=== PATIENT | female | born 1995 | race Caucasian/White ===

== ENCOUNTER 2018-01-30 11:03 | Emergency (ER) | payer SELFPAY ==
[~2018-01-30] VITALS: Ht 160 cm; Wt 65.0 kg
[2018-01-30 11:07] VITALS: BP 138/90; PULSE 90; RESP 22; TEMP 99.1
[2018-01-30 11:20] VITALS: BP 124/73; PULSE 66; RESP 16; O2SAT 100
[2018-01-30] MEDS ORDERED: birth control (11:25)
[2018-01-30 11:41] LABS: AUTOMATED NEUTROPHIL # 11.9 TH/MM3 (1.8-7.7); BASOPHIL # 0.1 TH/MM3 (0-0.2); BASOPHIL % 0.6 % (0.0-2.0); EOSINOPHIL % 0.1 % (0.0-4.0); HEMATOCRIT 41.8 % (35.0-46.0); HEMOGLOBIN 14.1 GM/DL (11.6-15.3); LYMPH % 8.8 % (9.0-44.0); LYMPHOCYTE # 1.2 TH/MM3 (1.0-4.8); MEAN CELL VOLUME 85.9 FL (80.0-100.0); MEAN CORPUSCULAR HGB CONC 33.8 % (32.0-36.0); MEAN PLATELET VOLUME 9.2 FL (7.0-11.0); MONO % 3.8 % (0.0-8.0); MONOCYTE # 0.5 TH/MM3 (0-0.9); NEUT % 86.7 % (16.0-70.0); PLATELET COUNT 226 TH/MM3 (150-450); RED BLOOD COUNT 4.87 MIL/MM3 (4.00-5.30); RED CELL DISTRIBUTION WIDTH 13.2 % (11.6-17.2); WHITE BLOOD COUNT 13.7 TH/MM3 (4.0-11.0)
[2018-01-30 12:04] LABS: ALBUMIN 4.4 GM/DL (3.4-5.0); AST (GOT) 17 U/L (15-37); BICARBONATE 21.5 MEQ/L (21.0-32.0); BLOOD UREA NITROGEN 7 MG/DL (7-18); CALCIUM 9.2 MG/DL (8.5-10.1); CHLORIDE 106 MEQ/L (98-107); CREATININE 0.74 MG/DL (0.50-1.00); GLOMERULAR FILTRATION RATE 97 ML/MIN (>89); GLUCOSE,RANDOM 93 MG/DL (74-106); SODIUM (NA) 139 MEQ/L (136-145)
[2018-01-30 12:05] LABS: ALT (GPT) 28 U/L (10-53)
[2018-01-30 12:07] LABS: ALKALINE PHOSPHATASE 42 U/L (45-117); TOTAL BILIRUBIN ADULT 0.8 MG/DL (0.2-1.0); TOTAL PROTEIN 7.6 GM/DL (6.4-8.2)
[2018-01-30] MEDS ORDERED: HALOPERIDOL LACTATE 5 MG/ML AMP IM ONE (12:15)
[2018-01-30] MEDS ORDERED: LORazepam 2 MG/ML VIAL IM ONE (12:15)
[2018-01-30] MEDS ORDERED: SODIUM CHLOR 0.9% 1000 ML INJ 1,000 ML IV ONE (12:15)
[2018-01-30 12:24] VITALS: BP 128/68; PULSE 71; RESP 16; TEMP 98; O2SAT 98
[2018-01-30 12:40] LABS: BACTERIA, URINE FEW /hpf; BILIRUBIN, URINE NEG (NEG); BLOOD, URINE SMALL (NEG); GLUCOSE,URINE NEG (NEG); KETONE, URINE 150 mg/dL (NEG); MUCUS URINE MOD /lpf (OCC); NITRITE,URINE NEG (NEG); PH, URINE 6.5 (5.0-8.5); SQUAMOUS EPITHELIAL CELL URINE 14 /hpf (0-5); URINE COLOR YELLOW (YELLW/STRAW); URINE LEUKOCYTE ESTERASE SMALL (NEG)
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
[2018-01-30] MEDS ORDERED: POTASSIUM CHLORIDE 20 MEQ CONTROLLED RELEASE TAB PO ONE (13:45)
[2018-01-30] MEDS ORDERED: IOHEXOL 350 MG/ML 10 ML VIAL (for RAD DIAG) IVCONTRAST ONE (14:11)
[2018-01-30 14:23] VITALS: BP 120/73; PULSE 68; RESP 16; O2SAT 98
--- NOTE | 2018-01-30 14:59 | RADRPT ---
EXAM DATE/TIME: 01/30/2018 14:01 [facility] COMPARISON: No previous studies available for comparison. INDICATIONS : Intractable nausea for two weeks. IV CONTRAST: 82 cc Omnipaque 350 (iohexol) IV ORAL CONTRAST: No oral contrast ingested. RADIATION DOSE: 5.77 CTDIvol (mGy) Dose Comments: MEDICAL HISTORY : None SURGICAL HISTORY : None. ENCOUNTER: Initial ACUITY: 2 weeks PAIN SCALE: 4/10 LOCATION: Bilateral upper quadrant epigastric. TECHNIQUE: Volumetric scanning of the abdomen and pelvis was performed. Using automated exposure control and ad justment of the mA and/or kV according to patient size, radiation dose was kept as low as reasonably achievable to obtain optimal diagnostic quality images. DICOM format image data is available electro nically for review and comparison. FINDINGS: LOWER LUNGS: The visualized lower lungs are clear. LIVER: Homogeneous density without lesion. There is no dilation of the biliary tree. No calcified gallston es. SPLEEN: Normal size without lesion. PANCREAS: Within normal limits. KIDNEYS: Normal in size and shape. There is no mass, stone or hydronephrosis. ADRENAL GLANDS: Within normal limits. VASCULAR: There is no aortic aneurysm. BOWEL/MESENTERY: The stomach, small bowel, and colon demonstrate no acute abnormality. There is no free intraperitone al air.. The appendix is unremarkable. No inflammatory changes. ABDOMINAL WALL: Within normal limits. RETROPERITONEUM: There is no lymphadenopathy. BLADDER: No wall thickening or mass. REPRODUCTIVE: There is a right ovarian cyst measuring 1.8 cm. There is a small amount of free fluid in the cul-de-s ac. INGUINAL: There is no lymphadenopathy or hernia. MUSCULOSKELETAL: Within normal limits for patient age. CONCLUSION: 1. Right ovarian cyst measuring 1.8 cm with some free fluid in the cul-de-sac. 2. Otherwise, unremarkable exam for patient's age. Enoc Lyons MD on January 30, 2018 at 14:54 Board Certified Radiologist. This report was verified electronically.
--- NOTE | 2018-01-30 15:53 | PD ---
History of Present Illness Chief Complaint: GI Complaint Time Seen by Provider: 15:30 Travel History International Travel<30 Days: No Contact w/Intl Traveler<30days: No Known affected area: No Legal Status Legal Status: Voluntary History of Present Illness: This is a 22-year-old female who presented to the emergency room for abdominal, nausea and vomiting. Upon discharge, patient stated to physician, "if I do not get help with this I am going to kill myself". Patient is previously unknown to this facility. Reviewed electronic medical record, labs, discuss case with staff. Patient was evaluated in her room in the ED main. Patient denies being suicidal and reports that she only said that so that she would be admitted. She denies any history of mental illness. She denies being homicidal or experiencing auditory or visual hallucinations as well. There is no indication of internal stimulation. I can elicit no delusional material. Patient is awake, alert, and oriented 4. Her speech is clear, logical, and organized. She is stated to this provider, "I just need somebody to prescribe me some benzos until I can get to a doctor's office". Explained that it is highly unlikely she would be prescribed benzodiazepines by any of the hospital providers. Additionally, he pointed out that. By patient's own admission she had been going through this for "months now" which means she has had ample opportunity to establish with an outpatient provider. She has been encouraged to make this connection. [facility] Past Medical History Medical History: Denies Significant Hx Medical other: Yes (marijuana induced vomiting?) ?: Not LMP: 01/23/18 : 0 Past Surgical History Surgical History: No Previous Surgery Psychiatric History Psychiatric History Denies History of Inpatient Treatment: No Guns or firearms in home: No Social History Hx Alcohol Use: Yes (socially) Hx Tobacco Use: Yes (socially) Hx Substance Use: Yes (quit smoking marijuana a week ago) Substance Use Type: Marijuana Hx of Substance Use Treatment: No Allergies-Medications (Allergen,Severity, Reaction): Coded Allergies: No Known Allergies (Unverified , 01/30/18) Reported Meds & Prescriptions Reported Meds & Active Scripts Active Reported [ control] Mental Status Examination Appearance: Disheveled Consciousness: Alert Orientation: x4 Motor Activity: Normal gait Speech: Unremarkable Language: Adequate Fund of Knowledge: Adequate Attention and Concentration: Adequate Memory: Unremarkable Mood: Appropriate Affect: Appropriate Thought Process & Associations: Intact Thought Content: Appropriate Hallucination Type: None Delusion Type: None Suicidal Ideation: No Suicidal Plan: No Suicidal Intention: No Homicidal Ideation: No Homicidal Plan: No Homicidal Intention: No Insight: Adequate Judgment: Impulsive MDM Medical Decision Making Medical Record Reviewed: Yes Assessment/Plan This is a 22-year-old single, female who presented to the emergency department with abdominal pain, nausea, and vomiting. Upon being told she was going to be discharged by the ER physician patient made suicidal statements. Patient found to be alert and oriented 4 during her evaluation. Her speech is clear, logical, and organized. There is no internal stimulation. Can elicit no delusional material. She denies being suicidal or homicidal. She denies having any auditory or visual hallucinations. She denies previous suicide attempts. She states, "I do not want to kill myself, I said that to get admitted". Patient then asks to have benzodiazepines by name prescribed to her. She appears to be drug-seeking. At this time she does not meet Strange act nor admission criteria. Orders Orders Complete Blood Count With Diff (01/30/18 11:25) Comprehensive Metabolic Panel (01/30/18 11:25) Urinalysis - C+S If Indicated (01/30/18 11:25) Iv Access Insert/Monitor (01/30/18 11:25) Oxygen Administration (01/30/18 11:25) Oximetry (01/30/18 11:25) Lipase (01/30/18 11:25) Lorazepam Inj (Ativan Inj) (01/30/18 12:15) Haloperidol Inj (Haldol Inj) (01/30/18 12:15) Sodium Chlor 0.9% 1000 Ml Inj (Ns 1000 M (01/30/18 12:15) Cath For Specimen (01/30/18 12:06) Ct Abd/Pel W Iv Contrast(Rout) (01/30/18 12:08) Drug Screen, Random Urine (01/30/18 12:10) Potassium Chloride (Kcl) (01/30/18 13:45) Iohexol 350 Inj (Omnipaque 350 Inj) (01/30/18 14:11) Psych Screen (01/30/18 15:06) Ed Discharge Order (01/30/18 15:26) Results Vital Signs Date Time Temp Pulse Resp B/P (MAP) Pulse Ox O2 Delivery O2 Flow Rate FiO2 01/30/18 14:23 68 16 120/73 (89) 98 Room Air 01/30/18 12:24 98.0 71 16 128/68 (88) 98 Room Air 01/30/18 11:20 66 16 124/73 (90) 100 Room Air 01/30/18 11:19 100 Room Air 01/30/18 11:07 99.1 90 22 138/90 (106) Laboratory Tests Test 01/30/18 11:25 01/30/18 12:15 White Blood Count 13.7 Red Blood Count 4.87 Hemoglobin 14.1 Hematocrit 41.8 Mean Corpuscular Volume 85.9 Mean Corpuscular Hemoglobin 29.0 Mean Corpuscular Hemoglobin Concent 33.8 Red Cell Distribution Width 13.2 Platelet Count 226 Mean Platelet Volume 9.2 Neutrophils (%) (Auto) 86.7 Lymphocytes (%) (Auto) 8.8 Monocytes (%) (Auto) 3.8 Eosinophils (%) (Auto) 0.1 Basophils (%) (Auto) 0.6 Neutrophils # (Auto) 11.9 Lymphocytes # (Auto) 1.2 Monocytes # (Auto) 0.5 Eosinophils # (Auto) 0.0 Basophils # (Auto) 0.1 CBC Comment DIFF FINAL Differential Comment Blood Urea Nitrogen 7 Creatinine 0.74 Random Glucose 93 Total Protein 7.6 Albumin 4.4 Calcium Level 9.2 Alkaline Phosphatase 42 Aspartate Amino Transf (AST/SGOT) 17 Alanine Aminotransferase (ALT/SGPT) 28 Total Bilirubin 0.8 Sodium Level 139 Potassium Level 3.1 Chloride Level 106 Carbon Dioxide Level 21.5 Anion Gap 12 Estimat Glomerular Filtration Rate 97 Lipase 209 Urine Color YELLOW Urine Turbidity HAZY Urine pH 6.5 Urine Specific [place] 1.020 Urine Protein TRACE Urine Glucose (UA) NEG Urine Ketones 150 Urine Occult Blood SMALL Urine Nitrite NEG Urine Bilirubin NEG Urine Urobilinogen LESS THAN 2.0 Urine Leukocyte Esterase SMALL Urine RBC 7 Urine WBC 4 Urine Squamous Epithelial Cells 14 Urine Bacteria FEW Urine Mucus MOD Microscopic Urinalysis Comment CULT NOT INDICATED Urine Opiates Screen NEG Urine Barbiturates Screen NEG Urine Amphetamines Screen NEG Urine Benzodiazepines Screen POS Urine Cocaine Screen NEG Urine Cannabinoids Screen POS Diagnosis Primary Impression: Adjustment disorder Additional Impression: Drug-seeking behavior Psychiatrically Cleared: Yes Additional Instructions: Follow-up with your doctor for ongoing evaluation and treatment of this chronic problem Disposition: 01 DISCHARGE HOME Condition: Stable Problem Qualifiers Gloria Grey January 30, 2018 15:53
[2018-01-30 16:10] VITALS: BP 128/76
== END 2018-01-30 16:13 | disposition home or self-care (01) ==
LOC: NEPE 11:03
DX: F43.20 Adjustment disorder, unspecified (principal); R10.84 Generalized abdominal pain; G43.A0 Cyclical vomiting, in migraine, not intractable; F12.10 Cannabis abuse, uncomplicated; Z76.5 Malingerer [conscious simulation]
CPT/HCPCS: 74177; 80053; 80307; 81001; 83690; 85025; 96360; 96372; 99284; J1630; J2060; J7030; Q9967